=== PATIENT | female | born 2000 | race Caucasian/White ===

== ENCOUNTER 2021-08-14 19:43 | Emergency (ER) | payer BC ==
--- NOTE | 2021-08-14 20:49 | EDM.PDOC ---
ED HPI GENERAL MEDICAL PROBLEM - General Chief Complaint: Respiratory Problem Stated Complaint: COVID SYMPTOMS Time Seen by Provider: 08/14/21 19:50 Source of Information: Reports: Patient History Limitations: Reports: No Limitations - History of Present Illness INITIAL COMMENTS - FREE TEXT/NARRATIVE: Patient presented to the ED because of fever, chills, sore throat, cough and malaise which started 4 days ago. - Related Data Allergies Allergy/AdvReac Type Severity Reaction Status Date / Time No Known Allergies Allergy Verified 08/14/21 20:12 Home Meds: Home Meds . Control 1 dose .XX ASDIRECTED 08/14/21 [History] Oseltamivir [Tamiflu] 75 mg PO BID #10 cap 08/14/21 [Rx] ED ROS GENERAL - Review of Systems Review Of Systems: See Below Constitutional: Reports: Fever, Chills, Malaise HEENT: Reports: No Symptoms Respiratory: Reports: Cough Cardiovascular: Reports: No Symptoms Endocrine: Reports: No Symptoms GI/Abdominal: Reports: No Symptoms : Reports: No Symptoms Musculoskeletal: Reports: No Symptoms Skin: Reports: No Symptoms Neurological: Reports: No Symptoms Psychiatric: Reports: No Symptoms ED EXAM, GENERAL - Physical Exam Exam: See Below Exam Limited By: No Limitations General Appearance: Alert, No Apparent Distress Eye Exam: Bilateral Eye: PERRL Ears: Normal External Exam, Normal Canal Nose: Normal Inspection, Normal Mucosa, No Blood Throat/Mouth: Normal Inspection, Normal Lips, Normal Teeth Head: Atraumatic, Normocephalic Neck: Normal Inspection, Supple, Non-Tender, Full Range of Motion Respiratory/Chest: No Respiratory Distress, Lungs Clear, Normal Breath Sounds, No Accessory Muscle Use, Chest Non-Tender Cardiovascular: Normal Peripheral Pulses, Regular Rate, Rhythm, No Edema, No Gallop, No JVD, No Murmur, No Rub GI/Abdominal: Normal Bowel Sounds, Soft, Non-Tender, No Organomegaly, No Distention, No Abnormal Bruit, No Mass Back Exam: Normal Inspection, Full Range of Motion Extremities: Normal Inspection, Normal Range of Motion, Non-Tender, No Pedal Edema, Normal Capillary Refill Neurological: Alert, Oriented, CN II-XII Intact, Normal Cognition, Normal Gait, Normal Reflexes, No Motor/Sensory Deficits Course - Vital Signs Text/Narrative:: FLU A-positive Covid -positive Last Recorded V/S: Last Vital Signs Temp 39.7 C H 08/14/21 21:15 Pulse 108 H 08/14/21 21:15 Resp 16 08/14/21 19:45 BP 139/85 08/14/21 19:45 Pulse Ox 94 L 08/14/21 19:45 - Orders/Labs/Meds Orders: Active Orders 24 hr Category Date Time Status Isolation [COMM] Routine Oth 08/14/21 20:00 Ordered Labs: Laboratory Tests 08/14/21 Range/Units 20:00 SARS-CoV-2 RNA (MICHAEL) Negative (NEGATIVE) Departure - Departure Time of Disposition: 21:30 Disposition: Home, Self-Care 01 Condition: Good Clinical Impression: Influenza - Discharge Information Prescriptions: Oseltamivir [Tamiflu] 75 mg PO BID #10 cap Instructions: Influenza, Adult, [id number] Referrals: Natasha Miles PA-C [Primary Care Provider] - Forms: ED Department Discharge Additional Instructions: Please read discharge instructions on influenza Drink 2 liters of water daily Take ibuprofen 800 mg with tylenol 1000 mg every 8 hours as needed for pain. Tamiflu 75 mg twice daily for 5 day(if you decided to take it) Follow up as needed Sepsis Event Note (ED) - Focused Exam Vital Signs: Vital Signs Temp Pulse Resp BP Pulse Ox 08/14/21 21:15 39.7 C H 108 H 08/14/21 19:45 38.1 C 115 H 16 139/85 94 L - My Orders Last 24 Hours: My Active Orders 08/14/21 20:00 Isolation [COMM] Routine - Assessment/Plan Last 24 Hours: My Active Orders 08/14/21 20:00 Isolation [COMM] Routine
== END 2021-08-14 21:20 | disposition home or self-care (01) ==
LOC: FB.ED 19:43
DX: J11.1 Influenza due to unidentified influenza virus with other respiratory manifestations (principal); Z20.822 Contact with and (suspected) exposure to COVID-19
CPT/HCPCS: 87804; 87804-59; 99283; U0002